=== PATIENT | male | born 1975 | race Caucasian/White ===

== ENCOUNTER → 2017-04-25 | Outpatient (CLI) | payer OTHER ==
--- NOTE | 2017-04-25 11:38 | RADIOLOGY REPORT (SQ) ---
EXAM DESCRIPTION: VENOUS UNILATERAL LOWER COMPLETED DATE/TIME: 04/25/2017 11:31 am REASON FOR STUDY: LLE EDEMA, PAIN, REDNESS R60.0 LOCALIZED EDEMA COMPARISON: None. TECHNIQUE: Dynamic and static rios scale and color images acquired of the left leg venous system. Se lected spectral images acquired with additional compression and augmentation maneuvers. The contralat eral common femoral vein and saphenofemoral junction were also imaged. Images stored on PACS. LIMITATIONS: None. FINDINGS: COMMON FEMORAL: Normal phasicity, compression and augmentation. No visualized echogenic ma terial on rios scale. No defects on color images. FEMORAL: Normal compression and augmentation. No visualized echogenic material on rios scale. No defe cts on color images. POPLITEAL: Normal compression, augmentation. No visualized echogenic material on rios scale. No defec ts on color images. CALF VESSELS: Normal compression, augmentation. No visualized echogenic material on rios scale. No de fects on color images. GSV and SSV: Normal compression, augmentation. No visualized echogenic material on rios scale. No def ects on color images. ANY DEEP VENOUS INSUFFICIENCY: Not evaluated. ANY EVIDENCE OF POPLITEAL CYST: No. OTHER: No other significant finding. CONTRALATERAL COMMON FEMORAL VEIN AND SAPHENOFEMORAL JUNCTION: Normal phasicity, compression and augmentation. No visualized echogenic material on rios scale. No de fects on color images. IMPRESSION: NO EVIDENCE DVT OR SVT IN THE LEFT LEG. TECHNICAL DOCUMENTATION: JOB ID: [id number] [employer]- All Rights Reserved
== END ==
LOC: SP 09:56
PROVIDERS: ATTEND Family Medicine
DX: R60.0 Localized edema (principal)
CPT/HCPCS: 93971